=== PATIENT | male | born 1955 | race Caucasian/White ===

== ENCOUNTER 2023-11-13 17:55 | Emergency (ER) | payer MEDICARE ==
[~2023-11-13] VITALS: Ht 172.7 cm; Wt 97.5 kg
[2023-11-13 20:50] LABS: URINE BILIRUBIN - DIPSTICK Negative (NEGATIVE); URINE BLOOD DIPSTICK Negative (NEGATIVE); URINE GLUCOSE - DIPSTICK Negative (NEGATIVE); URINE KETONE Trace mg/dL (NEGATIVE); URINE LEUK ESTERASE Negative (NEGATIVE); URINE NITRITE - DIPSTICK Negative (Negative); URINE PH 5.5 (4.5-8.0); URINE PROTEIN - DIPSTICK Negative (NEG-TRACE); URINE SPECIFIC GRAVITY 1.025; URINE UROBILINOGEN - DIPSTICK 0.2 E.U./dL (0.2)
[2023-11-13 20:51] LABS: URINE COLOR Yellow
[2023-11-13] MEDS ORDERED: TAMSULOSIN0.4 MG PO (23:20)
[2023-11-13] MEDS ORDERED: MOTRIN800 MG PO (23:20)
[2023-11-13 23:38] VITALS: BP 142/84
== END 2023-11-13 23:47 | disposition home or self-care (01) ==
LOC: ED 17:55
PROVIDERS: Family Medicine
DX: N13.2 Hydronephrosis with renal and ureteral calculous obstruction (principal); K57.30 Diverticulosis of large intestine without perforation or abscess without bleeding; Z87.442 Personal history of urinary calculi